=== PATIENT | male | born 1950 | race Caucasian/White ===

== ENCOUNTER 2018-08-10 16:18 | Inpatient (IN) | payer MEDICARE, OTHER ==
[~2018-08-10] VITALS: Ht 177.8 cm; Wt 81.2 kg
[2018-08-10 16:38] LABS: BASOPHILS # (AUTO) 0.1 /CMM (0.0-0.2); BASOPHILS % (AUTO) 1.3 % (0.0-2.0); EOSINOPHILS % (AUTO) 1.2 % (0.0-6.0); HEMATOCRIT 48 % (39-51); HEMOGLOBIN 16.3 g/dL (13.5-17.5); LYMPHOCYTES # (AUTO) 2.8 /CMM (0.8-4.8); MEAN CORPUSCULAR HGB CONC 34 g/dl (31.0-36.0); MEAN CORPUSCULAR VOLUME 95 fL (80-96); MONOCYTES # (AUTO) 0.8 /CMM (0.1-1.30); MONOCYTES % (AUTO) 7.5 % (2.0-12.0); NEUTROPHILS # (AUTO) 6.8 /CMM (1.8-8.9); PLATELET COUNT (AUTO) 255 /CMM (150-450); RED BLOOD CELL COUNT(AUTO) 5.06 MIL/uL (4.5-6.0); WHITE BLOOD COUNT (AUTO) 10.7 K/uL (4.3-11.0)
[2018-08-10 16:50] LABS: CARBON DIOXIDE 22 mmol/L (21-32); CHLORIDE 100 mmol/L (98-107); CREATININE 0.9 mg/dL (0.6-1.3); GLUCOSE 107 mg/dL (74-106); POTASSIUM 3.6 mmol/L (3.5-5.1); SODIUM SERUM 134 mmol/L (136-145); UREA NITROGEN, BLOOD 12 mg/dL (7-18)
[2018-08-10 16:55] LABS: CHOLESTEROL 150 mg/dL (<200); HDL CHOLESTEROL 86 mg/dL (40-60); LDL 70 mg/dL (0-99); TRIGLYCERIDES 69 mg/dL (30-150)
[2018-08-10] MEDS ORDERED: IV NS 0.9% 500 ML BAG IV ONE (17:00)
[2018-08-10] MEDS ORDERED: AMLO10TA7 PO (17:26)
[2018-08-10] MEDS ORDERED: ATEN25TA PO (17:26)
[2018-08-10] MEDS ORDERED: ASPI-1152 PO (17:26)
[2018-08-10] MEDS ORDERED: BENA5TAB5 PO (17:26)
[2018-08-10] MEDS ORDERED: ASPIRIN 325 MG TABLET PO ONE (18:30)
[2018-08-10] MEDS ORDERED: ASPIRIN 325 MG TABLET ONE (19:09)
[2018-08-10 20:00] VITALS: BP_SYST 117; BP_SYST 122; BP_SYST 141; BP_DIAS 71; BP_DIAS 78; BP_DIAS 91
[2018-08-10 20:45] VITALS: BP 141/91
[2018-08-10] MEDS ORDERED: ZOLPIDEM TARTRATE 5 MG TABLET PO PRN (23:00)
[2018-08-10] MEDS ORDERED: ACETAMINOPHEN 325 MG TABLET PO PRN (23:00)
[2018-08-10] MEDS ORDERED: HYDROCODONE/APAP 5/325MG 1 EACH TABLET PO PRN (23:00)
[2018-08-10] MEDS ORDERED: ONDANSETRON HCL/PF 4 MG/2 ML VIAL IVP PRN (23:00)
[2018-08-10] MEDS ORDERED: Z GUARD REMEDY 2 OZ OINT TP PRN (23:00)
[2018-08-10] MEDS ORDERED: MAGNESIUM HYDROXIDE 30 ML UDC PO PRN (23:00)
[2018-08-10 23:18] LABS: CALCIUM, SERUM 8.7 mg/dL (8.5-10.1); CREATININE 0.7 mg/dL (0.6-1.3); POTASSIUM 3.7 mmol/L (3.5-5.1)
[2018-08-10] MEDS: ATENOLOL 25 MG TABLET PO SCH (23:22)
[2018-08-10 23:28] LABS: ALBUMIN 3.3 g/dL (3.4-5.0); BILIRUBIN,TOTAL 0.7 mg/dL (0.2-1.0); TOTAL PROTEIN, SERUM 7.4 g/dL (6.4-8.2)
[2018-08-10 23:31] LABS: THYROID STIMULATING HORMONE 2.039 uIU/mL (0.358-3.74)
[2018-08-10] MEDS: BLOOD SUGAR DIAGNOSTIC 1 EACH STRIP IN SCH (23:32)
[2018-08-11] VITALS: BP 122/71
[2018-08-11] MEDS ORDERED: BLOOD SUGAR DIAGNOSTIC 1 EACH STRIP IN SCH
[2018-08-11] MEDS: IV NS 0.9% 1,000 ML IV PRN ×2 (00:37→15:43)
[2018-08-11 04:00] VITALS: BP 148/98
[2018-08-11] MEDS: BLOOD SUGAR DIAGNOSTIC 1 EACH STRIP IN SCH ×4 (06:05→21:23)
[2018-08-11 07:18] LABS: BASOPHILS # (AUTO) 0.1 /CMM (0.0-0.2); BASOPHILS % (AUTO) 0.7 % (0.0-2.0); EOSINOPHILS % (AUTO) 1.7 % (0.0-6.0); HEMATOCRIT 45 % (39-51); LYMPHOCYTES # (AUTO) 1.7 /CMM (0.8-4.8); LYMPHOCYTES % (AUTO) 22.3 % (20.0-44.0); MEAN CORPUSCULAR HGB CONC 34 g/dl (31.0-36.0); MEAN CORPUSCULAR VOLUME 95 fL (80-96); MONOCYTES # (AUTO) 0.6 /CMM (0.1-1.30); MONOCYTES % (AUTO) 8.1 % (2.0-12.0); NEUTROPHILS # (AUTO) 5.2 /CMM (1.8-8.9); NEUTROPHILS % (AUTO) 67.2 % (43.0-81.0); PLATELET COUNT (AUTO) 223 /CMM (150-450); RED BLOOD CELL COUNT(AUTO) 4.72 MIL/uL (4.5-6.0); WHITE BLOOD COUNT (AUTO) 7.7 K/uL (4.3-11.0)
[2018-08-11 07:39] LABS: CALCIUM, SERUM 8.6 mg/dL (8.5-10.1); CREATININE 0.8 mg/dL (0.6-1.3); MAGNESIUM 2.1 mg/dL (1.8-2.4); POTASSIUM 3.5 mmol/L (3.5-5.1)
[2018-08-11 08:00] VITALS: BP 136/76
[2018-08-11 08:15] VITALS: BP 136/76
[2018-08-11] MEDS: ASPIRIN 81 MG TAB.CHEW PO SCH (08:56)
[2018-08-11] MEDS: BENAZEPRIL HCL 5 MG TABLET PO SCH (08:57)
[2018-08-11] MEDS: ATENOLOL 25 MG TABLET PO SCH ×2 (08:57→16:17)
[2018-08-11] MEDS: AMLODIPINE BESYLATE 10 MG TABLET PO SCH (08:57)
[2018-08-11] MEDS ORDERED: GADODIAMIDE 2.5 MMOL/5 ML VIAL IJ ONE (09:00)
[2018-08-11] MEDS ORDERED: GADODIAMIDE 5 MMOL/10 ML VIAL IJ ONE (09:00)
[2018-08-11 16:00] VITALS: BP 129/72
[2018-08-11 20:00] VITALS: BP 127/85
[2018-08-12] MEDS: BLOOD SUGAR DIAGNOSTIC 1 EACH STRIP IN SCH ×4 (05:56→22:06)
[2018-08-12 08:00] VITALS: BP 141/73
[2018-08-12] MEDS ORDERED: CLOPIDOGREL BISULFATE 75 MG TABLET PO SCH (09:00)
[2018-08-12] MEDS: ASPIRIN 81 MG TAB.CHEW PO SCH (09:19)
[2018-08-12] MEDS: ATENOLOL 25 MG TABLET PO SCH ×2 (09:20→17:49)
[2018-08-12] MEDS: BENAZEPRIL HCL 5 MG TABLET PO SCH (09:20)
[2018-08-12] MEDS: AMLODIPINE BESYLATE 10 MG TABLET PO SCH (09:20)
[2018-08-12 16:20] VITALS: BP 132/80
[2018-08-12] MEDS: APIXABAN 2.5 MG TABLET PO SCH (17:57)
[2018-08-12 20:39] VITALS: BP 136/71
[2018-08-12 20:43] VITALS: BP 136/71
[2018-08-12] MEDS: IV NS 0.9% 1,000 ML IV PRN (20:45)
[2018-08-13] MEDS: BLOOD SUGAR DIAGNOSTIC 1 EACH STRIP IN SCH ×2 (06:39→11:52)
[2018-08-13 08:00] VITALS: BP 147/85
[2018-08-13] MEDS: ASPIRIN 81 MG TAB.CHEW PO SCH (09:02)
[2018-08-13] MEDS: ATENOLOL 25 MG TABLET PO SCH (09:02)
[2018-08-13] MEDS: AMLODIPINE BESYLATE 10 MG TABLET PO SCH (09:02)
[2018-08-13 09:03] VITALS: BP 147/85
[2018-08-13] MEDS: BENAZEPRIL HCL 5 MG TABLET PO SCH (09:03)
[2018-08-13] MEDS: APIXABAN 2.5 MG TABLET PO SCH (09:06)
== END 2018-08-13 12:30 | DRG 65 ==
LOC: ER 16:19 → TELE 20:10 → MED 08-11 10:51
PROVIDERS: ADMIT Nurse Practitioner Acute Care; ATTEND Nurse Practitioner Acute Care
DX: I63.40 Cerebral infarction due to embolism of unspecified cerebral artery (principal); E87.1 Hypo-osmolality and hyponatremia; Z86.73 Personal history of transient ischemic attack (TIA), and cerebral infarction without residual deficits; E78.5 Hyperlipidemia, unspecified; I10 Essential (primary) hypertension; I65.21 Occlusion and stenosis of right carotid artery; R29.810 Facial weakness; Z79.82 Long term (current) use of aspirin
CPT/HCPCS: 36415; 70450-TC; 70553-TC; 71045-TC; 80048-TC; 80053-TC; 80061-TC; 82962-TC; 83735-TC; 83880; 84100-TC; 84443-TC; 84484-TC; 85025-TC; 85652-TC; 85730-TC; 87081-TC; 92611-TC; 93880-TC; 97112-TC; 97116-TC; 97530-TC; 97535-TC; A9579; G0378; J7030; J7040

== ENCOUNTER 2019-04-02 20:53 | Emergency (ER) | payer MEDICARE, OTHER ==
[~2019-04-02] VITALS: Ht 182.9 cm; Wt 83.5 kg
[~2019-04-02 20:53] MED LIST: AMLO10TA7 PO; ASPI-1152 PO; ATEN25TA PO; BENA5TAB5 PO
[2019-04-02 20:56] VITALS: BP 148/90
[2019-04-02] MEDS ORDERED: HYDROCODONE/APAP 5/325MG 1 EACH TABLET PO ONE (21:30)
[2019-04-02] MEDS ORDERED: HYDROCODONE/APAP 5/325MG 1 EACH TABLET ONE (21:41)
--- NOTE | 2019-04-02 23:58 | NUR ---
AMBULANZ ETA 90MINS TRIP [id number]
--- NOTE | 2019-04-03 01:52 | NUR ---
CALLED MOIZ, ETA 10MIN
--- NOTE | 2019-04-03 02:10 | NUR ---
GAVE REPORT TO MOIZ López FOR TRANSPORTATION JAIDEN
== END 2019-04-03 02:22 | disposition home or self-care (01) ==
LOC: ER 20:54
DX: M48.00 Spinal stenosis, site unspecified (principal); I10 Essential (primary) hypertension; Z86.73 Personal history of transient ischemic attack (TIA), and cerebral infarction without residual deficits; Z79.82 Long term (current) use of aspirin; Z79.899 Other long term (current) drug therapy
CPT/HCPCS: 72131-TC; 73020

== ENCOUNTER 2024-06-06 11:31 | Inpatient (IN) | payer MEDICARE, OTHER ==
[~2024-06-06] VITALS: Ht 182.9 cm; Wt 79.4 kg
[~2024-06-06 11:31] MED LIST changes: +AMLO-213 PO; -AMLO10TA7 PO; -ASPI-1152 PO; +ASPI-1420 PO
[2024-06-06 12:07] LABS: BASOPHILS # (AUTO) 0.1 K/uL (0.0-0.2); BASOPHILS % (AUTO) 0.6 % (0.0-2.0); EOSINOPHILS # (AUTO) 0.4 K/uL (0.0-0.7); EOSINOPHILS % (AUTO) 2.8 % (0.0-6.0); HEMATOCRIT 37 % (39-51); LYMPHOCYTES # (AUTO) 1.2 K/uL (0.8-4.8); LYMPHOCYTES % (AUTO) 9.4 % (20.0-44.0); MEAN CORPUSCULAR HEMOGLOBIN 29 PG (26.0-33.0); MEAN CORPUSCULAR HGB CONC 33 g/dl (31.0-36.0); MEAN CORPUSCULAR VOLUME 90 fL (80-96); MONOCYTES # (AUTO) 1.1 K/uL (0.1-1.30); MONOCYTES % (AUTO) 8.4 % (2.0-12.0); NEUTROPHILS % (AUTO) 78.8 % (43.0-81.0); PLATELET COUNT (AUTO) 343 K/uL (150-450); RED BLOOD CELL COUNT(AUTO) 4.08 MIL/uL (4.5-6.0); RED CELL DISTRIBUTION WIDTH 14.8 % (11.5-15.0); WHITE BLOOD COUNT (AUTO) 12.7 K/uL (4.3-11.0)
[2024-06-06 12:23] LABS: ALANINE AMINOTRANSFERASE 26 U/L (12-78); ALBUMIN 3.3 g/dL (3.4-5.0); ALKALINE PHOSPHATASE 102 U/L (46-116); ASPARTATE AMINOTRANSFERASE 17 U/L (15-37); BILIRUBIN,DIRECT 0.1 mg/dL (0.0-0.2); BILIRUBIN,TOTAL 0.5 mg/dL (0.2-1.0); CALCIUM, SERUM 9.3 mg/dL (8.5-10.1); CARBON DIOXIDE 28 mmol/L (21-32); CHLORIDE 108 mmol/L (98-107); CREATININE 1.1 mg/dL (0.6-1.3); GLUCOSE 94 mg/dL (74-106); LIPASE 51 U/L (16-77); POTASSIUM 4.6 mmol/L (3.5-5.1); SODIUM SERUM 142 mmol/L (136-145); UREA NITROGEN, BLOOD 11 mg/dL (7-18)
[2024-06-06 12:52] LABS: APPEARANCE,URINE CLOUDY (CLEAR); BILIRUBIN,URINE 1+ (NEGATIVE); BLOOD, URINE 2+ Ery/uL (NEGATIVE); COLOR,URINE LIGHT YELLOW (YELLOW); KETONES,URINE NEGATIVE (NEGATIVE); LEUKOCYTE ESTERASE ,URINE 3+ (NEGATIVE); NITRITE, URINE NEGATIVE (NEGATIVE); PH,URINE 8.5 (5.0-8.0); PROTEIN,URINE 2+ mg/dl (NEGATIVE); UGLUCOSE NEGATIVE (NEGATIVE); UROBILINOGEN,URINE 0.2 EU/dL (0.2)
[2024-06-06 13:02] LABS: SQUAMOUS EPITHELIAL CELL,UR None Seen /HPF (None Seen)
[2024-06-06 13:03] LABS: ADD URINE CULTURE YES; BACTERIA,URINE Many /HPF (None Seen); WBC,URINE TOO NUMEROUS TO COUN /HPF (0-3)
[2024-06-06] MEDS ORDERED: KETOROLAC TROMETHAMINE 15 MG/ML VIAL ONE (13:12)
[2024-06-06] MEDS: KETOROLAC TROMETHAMINE 15 MG/ML VIAL IV ONE (13:15)
[2024-06-06] MEDS: IV NS 0.9% 1,000 ML BAG IV ONE ×2 (13:15→14:15)
[2024-06-06] MEDS ORDERED: CEFTRIAXONE 1GM BAG (ER ONLY) 50 ML IV ONE (13:30)
[2024-06-06] MEDS: CEFTRIAXONE 1 G in IV D5W 50 ML IV ONE (13:34)
[2024-06-06] MEDS ORDERED: IBUP-1955 PO (13:35)
[2024-06-06] MEDS ORDERED: CEPH-570 PO (13:35)
[2024-06-06] MEDS ORDERED: APIX2.5T PO (15:11)
[2024-06-06] MEDS ORDERED: ONDANSETRON HCL/PF 4 MG/2 ML VIAL IVP PRN (16:00)
[2024-06-06] MEDS: ENOXAPARIN SODIUM 40 MG/0.4 ML DISP.SYRIN SQ SCH (16:00)
[2024-06-06 17:00] VITALS: O2SAT 99
[2024-06-06 20:00] VITALS: BP 131/60; TEMP 98.8; O2SAT 96
[2024-06-06] MEDS: IV NS 0.9% 1,000 ML IV PRN (20:02)
[2024-06-06] MEDS: ACETAMINOPHEN 325 MG TABLET PO PRN (20:12)
[2024-06-07 06:55] LABS: BASOPHILS # (AUTO) 0.1 K/uL (0.0-0.2); BASOPHILS % (AUTO) 0.5 % (0.0-2.0); EOSINOPHILS # (AUTO) 0.4 K/uL (0.0-0.7); EOSINOPHILS % (AUTO) 3.2 % (0.0-6.0); HEMATOCRIT 33 % (39-51); HEMOGLOBIN 10.6 g/dL (13.5-17.5); LYMPHOCYTES # (AUTO) 2.2 K/uL (0.8-4.8); MEAN CORPUSCULAR HEMOGLOBIN 29 PG (26.0-33.0); MEAN CORPUSCULAR HGB CONC 33 g/dl (31.0-36.0); MEAN CORPUSCULAR VOLUME 89 fL (80-96); MONOCYTES # (AUTO) 1.1 K/uL (0.1-1.30); MONOCYTES % (AUTO) 9.2 % (2.0-12.0); NEUTROPHILS # (AUTO) 8.6 K/uL (1.8-8.9); NEUTROPHILS % (AUTO) 69.1 % (43.0-81.0); PLATELET COUNT (AUTO) 284 K/uL (150-450); RED BLOOD CELL COUNT(AUTO) 3.66 MIL/uL (4.5-6.0); RED CELL DISTRIBUTION WIDTH 14.3 % (11.5-15.0); WHITE BLOOD COUNT (AUTO) 12.4 K/uL (4.3-11.0)
[2024-06-07 07:19] LABS: CALCIUM, SERUM 8.4 mg/dL (8.5-10.1); CARBON DIOXIDE 23 mmol/L (21-32); CHLORIDE 111 mmol/L (98-107); CREATININE 1.1 mg/dL (0.6-1.3); GLUCOSE 95 mg/dL (74-106); MAGNESIUM 1.9 mg/dL (1.8-2.4); PHOSPHORUS 3.6 mg/dL (2.5-4.9); SODIUM SERUM 144 mmol/L (136-145); UREA NITROGEN, BLOOD 13 mg/dL (7-18)
[2024-06-07 08:00] VITALS: BP 139/68; TEMP 97.4; O2SAT 96
[2024-06-07] MEDS: PHENAZOPYRIDINE HCL 200 MG TABLET PO PRN (08:46)
[2024-06-07] MEDS: MINERAL OIL/PETROL OINT 396 GM JAR TP SCH (10:15)
[2024-06-07] MEDS: CEFTRIAXONE 1 G in IV D5W 50 ML IV SCH (14:18)
[2024-06-07] MEDS: KETOROLAC TROMETHAMINE 15 MG/ML VIAL IV PRN (15:25)
[2024-06-07 16:00] VITALS: BP 142/70; TEMP 98.2; O2SAT 96
[2024-06-07 20:00] VITALS: BP 124/71; TEMP 98.1; O2SAT 97
[2024-06-08 07:03] LABS: BASOPHILS # (AUTO) 0.1 K/uL (0.0-0.2); BASOPHILS % (AUTO) 0.8 % (0.0-2.0); EOSINOPHILS # (AUTO) 0.3 K/uL (0.0-0.7); EOSINOPHILS % (AUTO) 4.1 % (0.0-6.0); HEMATOCRIT 28 % (39-51); HEMOGLOBIN 9.3 g/dL (13.5-17.5); LYMPHOCYTES # (AUTO) 1.6 K/uL (0.8-4.8); LYMPHOCYTES % (AUTO) 19.6 % (20.0-44.0); MEAN CORPUSCULAR HEMOGLOBIN 30 PG (26.0-33.0); MEAN CORPUSCULAR HGB CONC 34 g/dl (31.0-36.0); MEAN CORPUSCULAR VOLUME 89 fL (80-96); MONOCYTES # (AUTO) 0.8 K/uL (0.1-1.30); MONOCYTES % (AUTO) 9.1 % (2.0-12.0); NEUTROPHILS # (AUTO) 5.6 K/uL (1.8-8.9); NEUTROPHILS % (AUTO) 66.4 % (43.0-81.0); PLATELET COUNT (AUTO) 233 K/uL (150-450); RED BLOOD CELL COUNT(AUTO) 3.14 MIL/uL (4.5-6.0); RED CELL DISTRIBUTION WIDTH 14.5 % (11.5-15.0); WHITE BLOOD COUNT (AUTO) 8.4 K/uL (4.3-11.0)
[2024-06-08 07:26] LABS: CALCIUM, SERUM 8.4 mg/dL (8.5-10.1); CARBON DIOXIDE 21 mmol/L (21-32); CHLORIDE 115 mmol/L (98-107); CREATININE 0.9 mg/dL (0.6-1.3); GLUCOSE 86 mg/dL (74-106); MAGNESIUM 1.8 mg/dL (1.8-2.4); PHOSPHORUS 3.5 mg/dL (2.5-4.9); POTASSIUM 3.4 mmol/L (3.5-5.1); SODIUM SERUM 147 mmol/L (136-145); UREA NITROGEN, BLOOD 12 mg/dL (7-18)
[2024-06-08 08:00] VITALS: BP 139/85; TEMP 98.1; O2SAT 96
[2024-06-08] MEDS: POTASSIUM CHLORIDE 20 MEQ TAB.PRT.SR PO ONE (08:16)
[2024-06-08] MEDS: AMLODIPINE BESYLATE 10 MG TABLET PO SCH (08:52)
[2024-06-08] MEDS: ATENOLOL 25 MG TABLET PO SCH (08:53)
[2024-06-08] MEDS: APIXABAN 2.5 MG TABLET PO SCH (08:55)
[2024-06-08] MEDS ORDERED: BENAZEPRIL HCL 5 MG TABLET PO SCH (09:00)
[2024-06-08] MEDS: BENAZEPRIL HCL 10 MG TABLET PO SCH (09:02)
[2024-06-08 16:00] VITALS: BP 114/68; TEMP 98.1; O2SAT 96
[2024-06-08 20:00] VITALS: BP 124/75; TEMP 98.4; O2SAT 95
[2024-06-09 06:29] LABS: BASOPHILS # (AUTO) 0.1 K/uL (0.0-0.2); BASOPHILS % (AUTO) 0.7 % (0.0-2.0); EOSINOPHILS # (AUTO) 0.4 K/uL (0.0-0.7); EOSINOPHILS % (AUTO) 4.9 % (0.0-6.0); HEMATOCRIT 31 % (39-51); HEMOGLOBIN 10.2 g/dL (13.5-17.5); LYMPHOCYTES # (AUTO) 1.9 K/uL (0.8-4.8); LYMPHOCYTES % (AUTO) 21.9 % (20.0-44.0); MEAN CORPUSCULAR HEMOGLOBIN 29 PG (26.0-33.0); MEAN CORPUSCULAR HGB CONC 33 g/dl (31.0-36.0); MEAN CORPUSCULAR VOLUME 89 fL (80-96); MONOCYTES # (AUTO) 0.7 K/uL (0.1-1.30); MONOCYTES % (AUTO) 8.4 % (2.0-12.0); NEUTROPHILS # (AUTO) 5.7 K/uL (1.8-8.9); NEUTROPHILS % (AUTO) 64.1 % (43.0-81.0); PLATELET COUNT (AUTO) 266 K/uL (150-450); RED BLOOD CELL COUNT(AUTO) 3.53 MIL/uL (4.5-6.0); RED CELL DISTRIBUTION WIDTH 14.5 % (11.5-15.0); WHITE BLOOD COUNT (AUTO) 8.9 K/uL (4.3-11.0)
[2024-06-09 06:41] LABS: CALCIUM, SERUM 8.5 mg/dL (8.5-10.1); CARBON DIOXIDE 20 mmol/L (21-32); CHLORIDE 112 mmol/L (98-107); CREATININE 0.9 mg/dL (0.6-1.3); GLUCOSE 85 mg/dL (74-106); MAGNESIUM 1.7 mg/dL (1.8-2.4); PHOSPHORUS 3.3 mg/dL (2.5-4.9); SODIUM SERUM 144 mmol/L (136-145); UREA NITROGEN, BLOOD 13 mg/dL (7-18)
[2024-06-09 07:00] VITALS: BP 138/68; TEMP 97.9; O2SAT 97
[2024-06-09] MEDS: MAGNESIUM OXIDE 400 MG TABLET PO ONE (10:08)
[2024-06-09 16:00] VITALS: BP 119/71; TEMP 97.9; O2SAT 97
[2024-06-09 21:00] VITALS: BP 128/70; TEMP 98.1; O2SAT 96
[2024-06-10 07:06] LABS: BASOPHILS # (AUTO) 0.1 K/uL (0.0-0.2); BASOPHILS % (AUTO) 0.8 % (0.0-2.0); EOSINOPHILS # (AUTO) 0.4 K/uL (0.0-0.7); EOSINOPHILS % (AUTO) 4.4 % (0.0-6.0); HEMATOCRIT 31 % (39-51); HEMOGLOBIN 10.3 g/dL (13.5-17.5); LYMPHOCYTES # (AUTO) 1.8 K/uL (0.8-4.8); LYMPHOCYTES % (AUTO) 18.2 % (20.0-44.0); MEAN CORPUSCULAR HEMOGLOBIN 30 PG (26.0-33.0); MEAN CORPUSCULAR HGB CONC 33 g/dl (31.0-36.0); MEAN CORPUSCULAR VOLUME 89 fL (80-96); MONOCYTES # (AUTO) 0.7 K/uL (0.1-1.30); MONOCYTES % (AUTO) 6.7 % (2.0-12.0); NEUTROPHILS % (AUTO) 69.9 % (43.0-81.0); PLATELET COUNT (AUTO) 272 K/uL (150-450); RED BLOOD CELL COUNT(AUTO) 3.45 MIL/uL (4.5-6.0); RED CELL DISTRIBUTION WIDTH 14.3 % (11.5-15.0)
[2024-06-10 07:49] LABS: CALCIUM, SERUM 8.2 mg/dL (8.5-10.1); CARBON DIOXIDE 23 mmol/L (21-32); CHLORIDE 113 mmol/L (98-107); CREATININE 0.8 mg/dL (0.6-1.3); GLUCOSE 88 mg/dL (74-106); MAGNESIUM 1.9 mg/dL (1.8-2.4); PHOSPHORUS 3.2 mg/dL (2.5-4.9); POTASSIUM 3.9 mmol/L (3.5-5.1); SODIUM SERUM 146 mmol/L (136-145); UREA NITROGEN, BLOOD 12 mg/dL (7-18)
[2024-06-10 08:29] VITALS: BP 137/81; TEMP 98.1; O2SAT 100
[2024-06-10] MEDS ORDERED: AMOX1TAB15 PO (09:47)
[2024-06-10 16:29] VITALS: BP 108/76; TEMP 98.4; O2SAT 97
[2024-06-10 16:40] VITALS: BP 108/66
== END 2024-06-10 19:02 | disposition home or self-care (01) | DRG 690 ==
LOC: ER 11:39 → MED 17:34
PROVIDERS: ADMIT Nurse Practitioner Acute Care; ATTEND Nurse Practitioner Acute Care
DX: N13.6 Pyonephrosis (principal); E44.1 Mild protein-calorie malnutrition; I69.351 Hemiplegia and hemiparesis following cerebral infarction affecting right dominant side; N21.0 Calculus in bladder; K57.30 Diverticulosis of large intestine without perforation or abscess without bleeding; N30.91 Cystitis, unspecified with hematuria; B96.89 Other specified bacterial agents as the cause of diseases classified elsewhere; D64.9 Anemia, unspecified; E88.09 Other disorders of plasma-protein metabolism, not elsewhere classified; M16.12 Unilateral primary osteoarthritis, left hip; D49.4 Neoplasm of unspecified behavior of bladder; I10 Essential (primary) hypertension; Z79.899 Other long term (current) drug therapy; Z79.01 Long term (current) use of anticoagulants
CPT/HCPCS: 36415; 76770-TC; 80048-TC; 80076-TC; 81001; 83605-TC; 83690-TC; 83735-TC; 84100-TC; 85025-TC; 87040-TC; 87086-TC; 97116-TC; 97530-TC; A4223; G0378; J0696; J1650; J1885; J7030; J7060